=== PATIENT | male | born 1960 | race Caucasian/White ===

== ENCOUNTER → 2017-02-20 | Outpatient (CLI) | payer OTHER ==
--- NOTE | ~2017-02-20 | PUL ---
PATIENT'S NAME: ALVINO GARRISON [facility] AGE: 56 Y [address] ROOM: [place] [id number] LOCATION: [facility] ADMIT DATE: 02/20/2017 Pulmonary DISCHARGE DATE: FAMILY PHYSICIAN: Ochoa Silva MD ATTENDING PHYSICIAN: CHRISTIANNE QUIROZ NAME OF PROCEDURE: Pulmonary Function Test DATE OF PROCEDURE: February 20, 2017 TECH: NELI Walker REASON FOR EXAM: Shortness of breath RESULTS: 1. FVC was 4.34 liters which is 90% of predicted and normal, FEV1 was 3.45 liters which is 94% of predicted and normal, and FEV1/FVC was 79% and normal. The flow volume curve did not reveal any significant airflow limitation. After bronchodilator administration FVC increased to 4.37 liters which is a 1% increase, and FEV1 increased to 3.51 liters which is a 2% increase. FEV1/FVC was 80%. 2. DLCO was 19.9 with an adjusted DLCO of 22.4 which is 88% of predicted and normal. 3. Total lung capacity was 6.63 liters which is 99% of predicted and normal, and residual volume was 2.29 liters which is 98% of predicted and normal. PHYSICIAN INTERPRETATION: The patient has no airflow limitation and no significant bronchodilator response. His diffusion capacity is normal. There is no evidence of restrictive lung disease. Essentially this is a normal pulmonary function test. MD RODRIGUE ALBERT/oanh /[id number] dtt: 02/24/17 1743 , CHRISTIANNE QUIROZ dtd: 02/24/17 1506
== END | disposition disaster alternative care site (69) ==
LOC: GRTH 13:00
DX: F17.210 Nicotine dependence, cigarettes, uncomplicated (principal); R06.02 Shortness of breath
CPT/HCPCS: G0297